=== PATIENT | female | born 1955 | race Caucasian/White ===

== ENCOUNTER 2018-10-20 14:14 | Emergency (ER) | payer OTHER ==
[~2018-10-20] VITALS: Ht 167.6 cm; Wt 61.0 kg
[2018-10-20 14:31] VITALS: Ht 167.6 cm; Wt 61.0 kg
[2018-10-20] MEDS ORDERED: SOD CHLORIDE 0.9% 500 ML IV STA (16:40)
--- NOTE | 2018-10-20 16:55 | ERD ---
ER Documentation Chief Complaint Chief Complaint Complains of chest pain and SOB x 2 days HPI 62-year-old woman complains of left-sided chest pain beginning this morning when she woke up, pain is been constant mild, nonexertional and radiating to the left shoulder. She also complains of hyperglycemia and bilateral lower extremity paresthesias. Her blood sugar was elevated today but paresthesias have been intermittent for the last few months. She states a few months ago she had similar chest pain which resolved after 2 days. She was triaged as having shortness of breath as well although she states she has a history of mild asthma and administered albuterol in the waiting room and denies shortness of breath at this time, she has had no fevers, no cough, no vomiting or diarrhea, no headache or blurry vision. ROS All systems reviewed and are negative except as per history of present illness. Medications Home Meds Active Scripts Naproxen* (Naprosyn*) 500 Mg Tablet, 500 MG PO BID PRN for PAIN AND/OR INFLAMMATION, #30 TAB Prov:GENEVA SHARMA MD 10/20/18 Allergies Allergies: Coded Allergies: No Known Allergy (Unverified , 10/20/18) PMhx/Soc History of Surgery: Yes (hysterectomy for ca, lt foot skin sx ca, nose skin ca, right forearm av juliette) Anesthesia Reaction: No Hx Neurological Disorder: Yes (epilepsy, cva) Hx Respiratory Disorders: No Hx Cardiac Disorders: Yes (HTN) Hx Psychiatric Problems: No Hx Miscellaneous Medical Probl: Yes (kidney transplant x8 years ago) Hx Alcohol Use: No Hx Substance Use: No Hx Tobacco Use: No Smoking Status: Never smoker FmHx Family History: No diabetes Physical Exam Vitals Vital Signs Date Temp Pulse Resp B/P (MAP) Pulse Ox O2 O2 Flow FiO2 Time Delivery Rate 10/20/18 98.8 80 18 135/73 96 Room Air 18:11 (93) 10/20/18 83 18 143/86 96 Room Air 16:40 (105) 10/20/18 98.8 89 20 173/94 98 14:31 (120) Physical Exam GENERAL: Well-developed, well-nourished, well-hydrated, in no apparent distress, looks nontoxic in appearance HEENT: Moist mucous membranes, pink conjunctiva, no cervical spine tenderness or step-off deformities, no goiter, no jaundice or icterus, extraocular movements intact without pain. No submandibular induration, and no pharyngeal erythema NEURO: Alert and oriented 3, cranial nerves II through XII intact bilaterally, pupils equal round reactive to light, no focal deficits or facial asymmetry, sen sation intact distally Strength 5/5 in upper and lower extremities bilaterally CARDIAC: Regular rate and rhythm, no murmurs rubs or gallops LUNGS: Clear bilaterally no wheezing crackles or stridor ABDOMEN: Soft nontender, no guarding, no rigidity, no rebound, no psoas sign no obturator sign. Normoactive bowel sounds SKIN: Warm and dry to touch, no abrasions, contusions, or hematomas, no lacerations, no ecchymosis, no target lesions, and without ulcers EXTREMITIES: No clubbing cyanosis or edema, calves are bilaterally symmetrical, no Homans sign, no popliteal cord sign. Distal pulses equal and bilateral PSYCH: Normal affect without agitation or irritability Result Diagram: 10/20/18 1652 10/20/18 1652 Results 24 hrs Laboratory Tests Test 10/20/18 16:52 10/20/18 16:53 White Blood Count 7.3 10^3/ul Red Blood Count 5.17 10^6/ul Hemoglobin 13.8 g/dl Hematocrit 43.0 % Mean Corpuscular Volume 83.2 fl Mean Corpuscular Hemoglobin 26.7 pg Mean Corpuscular Hemoglobin Concent 32.1 g/dl Red Cell Distribution Width 13.2 % Platelet Count 242 10^3/UL Mean Platelet Volume 10.3 fl Immature Granulocytes % 0.700 % Neutrophils % 79.6 % Lymphocytes % 14.7 % Monocytes % 4.0 % Eosinophils % 0.5 % Basophils % 0.5 % Nucleated Red Blood Cells % 0.0 /100WBC Immature Granulocytes # 0.050 10^3/ul Neutrophils # 5.8 10^3/ul Lymphocytes # 1.1 10^3/ul Monocytes # 0.3 10^3/ul Eosinophils # 0.0 10^3/ul Basophils # 0.0 10^3/ul Nucleated Red Blood Cells # 0.0 10^3/ul Sodium Level 139 mmol/L Potassium Level 4.3 mmol/L Chloride Level 104 mmol/L Carbon Dioxide Level 25 mmol/L Anion Gap 10 Blood Urea Nitrogen 18 mg/dl Creatinine 0.58 mg/dl Est Glomerular Filtrat Rate mL/min > 60 mL/min Glucose Level 223 mg/dl Calcium Level 9.9 mg/dl Total Bilirubin 0.6 mg/dl Direct Bilirubin 0.00 mg/dl Indirect Bilirubin 0.6 mg/dl Aspartate Amino Transf (AST/SGOT) 33 IU/L Alanine Aminotransferase (ALT/SGPT) 28 IU/L Alkaline Phosphatase 129 IU/L Troponin I < 0.012 ng/ml Total Protein 7.8 g/dl Albumin 4.4 g/dl Globulin 3.40 g/dl Albumin/Globulin Ratio 1.29 Lipase 92 U/L Urine Color YELLOW Urine Clarity CLEAR Urine pH 5.0 Urine Specific [place] 1.012 Urine Ketones TRACE mg/dL Urine Nitrite NEGATIVE mg/dL Urine Bilirubin NEGATIVE mg/dL Urine Urobilinogen NEGATIVE mg/dL Urine Leukocyte Esterase NEGATIVE Michelle/ul Urine Microscopic RBC 1 /HPF Urine Microscopic WBC 1 /HPF Urine Hemoglobin NEGATIVE mg/dL Urine Glucose 1+ mg/dL Urine Total Protein 1+ mg/dl Current Medications Medications Dose Sig/Charmaine Start Time Status Last (Trade) Ordered Route PRN Stop Time Admin Dose Reason Admin Sodium 500 ml @ Q1H STAT 10/20/18 DC 10/20/18 Chloride 500 mls/hr IV 16:40 17:00 10/20/18 17:45 Oxycodone/ 1 tab ONCE ONCE 10/20/18 DC 10/20/18 Acetaminophen PO 17:00 17:00 (Percocet 10/20/18 17:01 (5/ 325)) Procedures/MDM IV line was established patient was placed on front desk monitor rhythm strip revealed a sinus rhythm at about 80 bpm with upright P and T waves. Patient was afebrile One AP view of the chest performed, read by me reveals no acute infiltrates, n ormal mediastinum, sharp costophrenic and cardiac borders, no air under the diaphragm. Otherwise unremarkable chest x-ray. EKG performed, read by me: 80 bpm, normal sinus rhythm, normal axis, no acute ST segment changes, narrow QRS complex, with good R-wave progression in precordial leads. I administered 500 cc normal saline IV, Percocet 1 tablet CBC and electrolytes were unremarkable, blood sugar slightly high, liver function tests normal, troponin negative, urinalysis negative for infection. Departure Diagnosis: Primary Impression: Chest pain Chest pain type: unspecified Qualified Codes: R07.9 - Chest pain, unspecified Additional Impressions: Paresthesias Hyperglycemia Condition: Good GENEVA SHARMA MD Oct 20, 2018 16:55
[2018-10-20] MEDS ORDERED: OXYCODONE/ACETAMINOPHEN (5/325) TAB PO ONE (17:00)
[2018-10-20] MEDS ORDERED: NAPR-985 PO (17:50)
[2018-10-20 18:11] VITALS: BP 135/73; PULSE 80; RESP 18
== END 2018-10-20 18:15 | disposition home or self-care (01) ==
LOC: E/R 14:14
DX: R07.9 Chest pain, unspecified (principal); R20.2 Paresthesia of skin; R73.9 Hyperglycemia, unspecified; I10 Essential (primary) hypertension; J45.909 Unspecified asthma, uncomplicated; Z85.828 Personal history of other malignant neoplasm of skin; Z86.73 Personal history of transient ischemic attack (TIA), and cerebral infarction without residual deficits
CPT/HCPCS: 36415; 71045; 80053; 81001; 83690; 84484; 85025; 93005; J7040; Z7502; Z7610